=== PATIENT | male | born 1970 | race African-American/Black ===

== ENCOUNTER 2023-08-07 02:37 | Emergency (ER) | payer OTHER ==
[2023-08-07 04:32] LABS: Specific Gravity 1.017 (1.005-1.030); Urine Bacteria None Seen /HPF (<20); Urine Bilirubin NEGATIVE (Negative); Urine Blood 2+ (Negative); Urine Clarity Clear (Clear); Urine Color Light-Yellow (Yellow); Urine Glucose NEGATIVE (Negative); Urine Mucus 1+ /HPF (None Seen); Urine Protein NEGATIVE (Negative); Urine RBC 21-50 /HPF (None Seen); Urine Urobilinogen Normal (Normal); Urine pH 5.5 (5.0-7.0)
--- NOTE | 2023-08-07 04:40 | EDPHYS ---
Physician Documentation [facility] Name: Enrique Dorsey Age: 53 yrs Sex: Male : 1970 Arrival Date: 08/07/2023 Time: 02:37 Bed 14 Private MD: ED Physician Enrique Serrano HPI: 08/07 03:23 This 53 yrs old Male presents to ER via Ambulatory with complaints of Back Pain. ms3 03:23 53-year-old male with past medical history of kidney stones presents for right low back ms3 pain that began at 1:17 AM on getting up to use the restroom. Patient states his pain is improved at this time is currently a 0. Patient states the pain lasted for approximately 1 hour.. Historical: - Allergies: 02:49 No Known Allergies; bp - Home Meds: 02:49 None [Active]; bp - PMHx: 02:49 None; bp - Immunization history:: Adult Immunizations up to date. - Social history:: Smoking status: Patient denies any tobacco usage or history of. ROS: 03:23 Constitutional: Negative for fever, and chills. Neck: Negative for injury, pain, and ms3 swelling, Cardiovascular: Negative for chest pain, and palpitations. Respiratory: Negative for shortness of breath, cough, wheezing, and pleuritic chest pain, Abdomen/GI: Negative for abdominal pain, nausea, vomiting, diarrhea, and constipation, 03:23 Back: Positive for Right low back pain, 03:23 All other systems are negative, Exam: 03:23 Constitutional: This is a well developed, well nourished patient who is awake, alert, ms3 and in no acute distress. Head/Face: Normocephalic, atraumatic. Neck: Trachea midline, no cervical lymphadenopathy. Supple, full range of motion without nuchal rigidity, or vertebral point tenderness. No Meningismus. Chest/axilla: Normal chest wall appearance and motion. Nontender with no deformity. Cardiovascular: Regular rate and rhythm with a normal S1 and S2. No gallops, murmurs, or rubs. Normal PMI, no JVD. No pulse deficits. Respiratory: Lungs have equal breath sounds bilaterally, clear to auscultation and percussion. No rales, rhonchi or wheezes noted. No increased work of breathing, no retractions or nasal flaring. Abdomen/GI: Soft, non-tender, with normal bowel sounds. No distension or tympany. No guarding or rebound. No evidence of tenderness throughout. Back: No spinal tenderness. No costovertebral tenderness. Full range of motion. Skin: Warm, dry with normal turgor. Normal color with no rashes, no lesions, and no evidence of cellulitis. MS/ Extremity: Pulses equal, no cyanosis. Neurovascular intact. Full, normal range of motion. Vital Signs: 02:48 BP 131 / 83; Pulse 79; Resp 16; Temp 98; Pulse Ox 100% ; Weight 97.52 kg; Height 6 ft. bp 0 in. ; 03:01 BP 126 / 85; Pulse 67; Resp 17 S; Pulse Ox 100% on R/A; ha1 04:08 BP 143 / 90; Pulse 64; Resp 17 S; Pulse Ox 100% on R/A; ha1 02:48 Body Mass Index 29.16 (97.52 kg, 182.88 cm) bp MDM: 02:57 Patient medically screened. ms3 03:23 Differential diagnosis: Ureterolithiasis UTI vs Muscle spasm. ms3 04:26 ED course: Kidney stone present in patient's urinalysis sample. ms3 04:40 Data reviewed: vital signs, nurses notes, lab test result(s), urinalysis, and as a ms3 result, I will discharge patient. Test considered but Not performed: CT: Patient's pain improved and kidney stone and urine given for sample for urinalysis. Counseling: I had a detailed discussion with the patient and/or guardian regarding the historical points, exam findings, and any diagnostic results supporting the discharge/admit diagnosis, lab results, the need for outpatient follow up, to return to the emergency department if symptoms worsen or persist or if there are any questions or concerns that arise at home. ED course: Patient remains without pain at this time. Patient to follow-up with Dr. Fonseca in 2 to 3 days. Patient understands agrees with plan. All questions were answered. Return precautions discussed include worsening symptoms, or any other concerns.. 08/07 03:30 Order name: Urinalysis w/ reflexes; Complete Time: 04:37 EDMS Administered Medications: No medications were administered Disposition Summary: 08/07/23 04:39 Discharge Ordered Notes: Location: Home ms3 Condition: Stable ms3 Diagnosis - Kidney stone- passed ms3 Followup: ms3 - With: Kelvin Fonseca MD - When: 2 - 3 days - Reason: Recheck today's complaints Discharge Instructions: - Discharge Summary Sheet ms3 - Kidney Stones, [id number]-[id number] ms3 Forms: - Medication Reconciliation Form ms3 - Thank You Letter ms3 - Antibiotic Education ms3 - Prescription Opioid Use ms3 - Patient Portal Instructions ms3 - Leadership Thank You Letter ms3 Signatures: Dispatcher [employer] Marvin Sosa, RN RN Enrique Alves DO DO ms3
--- NOTE | 2023-08-07 04:40 | ER ---
Nurse's Notes [facility] Name: Enriqeu Dorsey Age: 53 yrs Sex: Male : 1970 Arrival Date: 08/07/2023 Time: 02:37 Bed 14 Private MD: Diagnosis: Kidney stone- passed Presentation: 08/07 02:48 Chief complaint: Patient states: R FLANK PAIN SINCE 0115. Coronavirus screen: At this bp time, the client does not indicate any symptoms associated with coronavirus-19. Ebola Screen: No symptoms or risks identified at this time. Initial Sepsis Screen: Does the patient meet any 2 criteria? No. Patient's initial sepsis screen is negative. Does the patient have a suspected source of infection? No. Patient's initial sepsis screen is negative. Risk Assessment: Do you want to hurt yourself or someone else? Patient reports no desire to harm self or others. Onset of symptoms was August 07, 2023 at 01:17. 02:48 Method Of Arrival: Ambulatory bp 02:48 Acuity: IVY 4 bp Triage Assessment: 02:49 General: Appears uncomfortable, Behavior is calm, cooperative, appropriate for age. bp Pain: Complains of pain in right flank. Musculoskeletal: Circulation, motion, and sensation intact. Historical: - Allergies: 02:49 No Known Allergies; bp - Home Meds: 02:49 None [Active]; bp - PMHx: 02:49 None; bp - Immunization history:: Adult Immunizations up to date. - Social history:: Smoking status: Patient denies any tobacco usage or history of. Screenin:48 [facility] ED Fall Risk Assessment (Adult) History of falling in the last 3 months, ha1 including since admission Yes- single mechanical fall (1 pt) Confusion or Disorientation No (0 pts) Intoxicated or Sedated No (0 pts) Impaired Gait No (0 pts) Mobility Assist Device Used No (0 pt) Altered Elimination No (0 pt) Score/Fall Risk Level 0 - 2 = Low Risk Oriented to surroundings, Maintained a safe environment, Educated pt \T\ family on fall prevention, incl call for assistance when getting out of bed, Hourly rounding (assess needs \T\ fall precautionary measures) done. Abuse screen: Denies threats or abuse. Denies injuries from another. Nutritional screening: No deficits noted. Tuberculosis screening: No symptoms or risk factors identified. Assessment: 02:48 General: Appears comfortable, Behavior is calm, cooperative. Pain: Complains of pain in ha1 right flank Pain does not radiate. Pain at worst was 9 out of 10 on a pain scale. Quality of pain is described as throbbing. Neuro: Level of Consciousness is awake, alert, obeys commands, Oriented to person, place, time, situation. Cardiovascular: Capillary refill < 3 seconds Patient's skin is warm and dry. Respiratory: Airway is patent Respiratory effort is even, unlabored, Respiratory pattern is regular, symmetrical. GI: No signs and/or symptoms were reported involving the gastrointestinal system. Abdomen is flat, non-distended. : Reports history of kidney stones. Derm: Skin is healthy with good turgor, Skin is moist, Skin is normal. Musculoskeletal: Circulation, motion, and sensation intact. Range of motion: intact in all extremities. 03:50 Reassessment: Patient and/or family updated on plan of care and expected duration. Pain ha1 level reassessed. Patient is alert, oriented x 3, equal unlabored respirations, skin warm/dry/pink. Vital Signs: 02:48 BP 131 / 83; Pulse 79; Resp 16; Temp 98; Pulse Ox 100% ; Weight 97.52 kg; Height 6 ft. bp 0 in. ; 03:01 BP 126 / 85; Pulse 67; Resp 17 S; Pulse Ox 100% on R/A; ha1 04:08 BP 143 / 90; Pulse 64; Resp 17 S; Pulse Ox 100% on R/A; ha1 02:48 Body Mass Index 29.16 (97.52 kg, 182.88 cm) bp ED Course: 02:41 Patient arrived in ED. [id number] 02:42 Enrique Serrano DO is Attending Physician. ms3 02:48 Patient has correct armband on for positive identification. Bed in low position. Call ha1 light in reach. Side rails up X 1. 02:49 Triage completed. bp 02:50 Arm band placed on. bp 02:57 Rosa Forrest, PHYLLIS is Primary Nurse. ha1 04:39 Kelvin Fonseca MD is Referral Physician. ms3 04:49 Provided Education on: following up with urology . ha1 04:49 No provider procedures requiring assistance completed. Patient did not have IV access ha1 during this emergency room visit. Administered Medications: No medications were administered Medication: 03:01 VIS not applicable for this client. ha1 Outcome: 04:39 Discharge ordered by . ms3 04:49 Discharged to home ambulatory, with family, ha1 04:49 Condition: stable 04:49 Discharge instructions given to patient, Instructed on discharge instructions, follow up and referral plans. Demonstrated understanding of instructions, follow-up care, 04:50 Patient left the ED. ha1 Signatures: Marvin Stewart, RN RN Enrique Serrano DO DO ms3 Yanique Rush jj6 Rosa Forrest, RN RN ha1
== END 2023-08-07 04:50 | disposition home or self-care (01) ==
LOC: ER 02:37
DX: N20.0 Calculus of kidney (principal); M54.50 Low back pain, unspecified
CPT/HCPCS: 81001